=== PATIENT | male | born 1990 | race Caucasian/White ===

== ENCOUNTER 2016-12-24 08:56 | Emergency (ER) | payer OTHER ==
[2016-12-24 09:59] VITALS: BP 134/73
--- NOTE | 2016-12-24 11:42 | UC ---
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 NO SORE THROAT. NO COUGH. NO RASH. NO NAUSEA OR VOMITING. NO ABDOMINAL PAIN. NO DIARRHEA OR CONSTIPATION. - History of Current Complaint Hx Obtained From: Patient Onset/Duration: Sudden Onset, Lasting Days, Still Present Severity Currently: Moderate Severity Initially: Moderate Pain Intensity: 0 Pain Scale Used: 0-10 Numeric Associated Signs & Symptoms: Positive: Fever, T Max - 102.6, F/C, Myalgia Related Hx: Possible Flu/Infectious Exposure - Risk Factors Influenza Risk Factors: Negative <Rivera Rice - Last Filed: 12/24/16 11:38> <Aparna Cha - Last Filed: 12/24/16 12:06> - History of Current Complaint Chief Complaint: UCGeneralIllness Stated Complaint: FLU SYMPTOMS Time Seen by Provider: 12/24/16 09:51 - Allergy/Home Medications Allergies/Adverse Reactions: Allergies Allergy/AdvReac Type Severity Reaction Status Date / Time No Known Allergies Allergy Verified 12/24/16 09:52 Home Medications: Home Medications Ibuprofen TAB* [Advil TAB*] 600 mg PO PRN 12/24/16 [History] Multiple Vitamins W/ Minerals [Airborne] 12/24/16 [History] Nyquil 12/24/16 [History] Robitussin Daytime 12/24/16 [History] PMH/Surg Hx/FS Hx/Imm Hx Previously Healthy: Yes - Surgical History Surgical History: None - Family History Known Family History: Positive: Other - cancers - Social History Occupation: Employed Full-time Lives: With Family Alcohol Use: Occasionally Substance Use Type: None Smoking Status (MU): Never Smoked Tobacco <Rivera Rice - Last Filed: 12/24/16 11:38> Review of Systems Constitutional: Fever, Chills, Fatigue Skin: Negative Eyes: Negative ENT: Negative Respiratory: Negative Cardiovascular: Negative Gastrointestinal: Other - LOSS OF APPETITE Motor: Negative Neurovascular: Negative Musculoskeletal: Myalgia Neurological: Negative Psychological: Negative Is Patient Immunocompromised?: No All Other Systems Reviewed And Are Negative: Yes <Rivera Rice - Last Filed: 12/24/16 11:38> Physical Exam Triage Information Reviewed: Yes Appearance: No Pain Distress, Well-Nourished, Ill-Appearing Vital Signs: Initial Vital Signs Temp 101.5 F 12/24/16 09:53 Pulse 97 12/24/16 09:53 Resp 18 12/24/16 09:53 BP 134/73 12/24/16 09:53 Pulse Ox 95 12/24/16 09:53 Vital Signs Reviewed: Yes Eye Exam: Normal ENT Exam: Normal ENT: Positive: Normal ENT inspection, Hearing grossly normal, TMs normal Dental Exam: Normal Neck exam: Normal Neck: Positive: Supple, Nontender, No Lymphadenopathy Respiratory Exam: Normal Respiratory: Positive: Chest non-tender, Lungs clear, Normal breath sounds, No respiratory distress, No accessory muscle use Cardiovascular Exam: Normal Cardiovascular: Positive: RRR, No Murmur, Pulses Normal, Brisk Capillary Refill Abdominal Exam: Normal Abdomen Description: Positive: Nontender, No Organomegaly, Soft Musculoskeletal Exam: Normal Neurological Exam: Normal Psychological Exam: Normal Skin Exam: Normal <Rivera Rice - Last Filed: 12/24/16 11:38> Vital Signs: Initial Vital Signs Temp 101.5 F 12/24/16 09:53 Pulse 97 12/24/16 09:53 Resp 18 12/24/16 09:53 BP 134/73 12/24/16 09:53 Pulse Ox 95 12/24/16 09:53 <Aparna Cha - Last Filed: 12/24/16 12:06> Flu Course/Dx - Differential Dx/Diagnosis Differential Diagnosis/HQI/PQRI: Influenza, Upper Respiratory Infection Provider Diagnoses: VIRAL SYNDROME <Rivera Rice - Last Filed: 12/24/16 11:38> Discharge <Rivera Rice - Last Filed: 12/24/16 11:38> <Aparna Cha - Last Filed: 12/24/16 12:06> - Discharge Plan Condition: Stable Disposition: HOME Patient Education Materials: Viral Syndrome (ED) Forms: *Work Release Referrals: Clement Prado MD [Primary Care Provider] - Attestation Statement User Type: Provider - I was available for consult. This patient was seen by the EM[facility]. The patient was not presented to, seen by, or examined by me. -Charity <Aparna Cha - Last Filed: 12/24/16 12:06>
== END 2016-12-24 10:55 | disposition home or self-care (01) ==
LOC: UCEAST 08:56
DX: B34.9 Viral infection, unspecified (principal)
CPT/HCPCS: 87502; 87651; 99211; G0463